=== PATIENT | male | born 2000 | race Caucasian/White ===

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

== ENCOUNTER 2019-02-14 14:20 | Emergency (ER) | payer OTHER ==
[~2019-02-14] VITALS: Ht 170.2 cm; Wt 61.7 kg
[2019-02-14 14:22] VITALS: BP 142/63; PULSE 61; RESP 19; Ht 170.2 cm; Wt 61.7 kg
--- NOTE | 2019-02-14 15:09 | ERD ---
ER Documentation Chief Complaint Chief Complaint abdominal pain, vomitting, nausea x 3 days; painful swallowing HPI 18-year-old male is here complaining of chest wall pain and throat pain from cough and congestion for the past 2 to 3 days. Triage note stated abdominal pain with nausea and vomiting however this is incorrect. He says the pain is swallowing but is tolerating oral intake. No fever. He also states he feels very anxious. ROS All systems reviewed and are negative except as per history of present illness. Medications Home Meds Active Scripts Lorazepam* (Ativan*) 0.5 Mg Tablet, 0.5 MG PO Q8, #5 TAB Prov:JACOB SANCHEZ PA-C 07/05/18 Ondansetron (Ondansetron Odt) 4 Mg Tab.rapdis, 4 MG PO Q6H PRN for NAUSEA AND/OR VOMITING, #10 TAB Prov:BRANDYN,KEVEN 01/26/18 Lorazepam* (Ativan*) 0.5 Mg Tablet, 0.5 MG PO Q8, #10 TAB Prov:BRANDYN,KEVEN 01/26/18 Reported Medications [None] No Conflict Check 05/17/12 Allergies Allergies: Coded Allergies: No Known Drug Allergies (Verified Allergy, Mild, 09/20/18) PMhx/Soc History of Surgery: Yes (left wrist SX) Anesthesia Reaction: No Hx Neurological Disorder: No Hx Respiratory Disorders: No Hx Cardiac Disorders: No Hx Psychiatric Problems: Yes (anxiety) Hx Miscellaneous Medical Probl: No Hx Alcohol Use: No Hx Substance Use: Yes (marijuana) Hx Tobacco Use: No FmHx Family History: No diabetes Physical Exam Vitals Vital Signs Date Temp Pulse Resp B/P (MAP) Pulse Ox O2 O2 Flow FiO2 Time Delivery Rate 02/14/19 97.6 61 19 142/63 97 14:22 (89) Physical Exam INITIAL VITAL SIGNS: Reviewed by me GENERAL: Awake, alert and oriented x 4, well appearing, nontoxic, speaking in full sentences. No acute distress HEAD: Atraumatic NECK: Supple. No masses. Full range of motion. No meningismus. No midline tenderness. EYES: EOMI. PERRL. THROAT: No tonilar erythema or edema. No exudates. Uvula midline. No kissing tonsils. RESPIRATORY: Clear to auscultation bilaterally. Symmetric chest wall rise. No wheezing or rales. No accessory muscle use. CV: Regular rate and rhythm. No murmurs, rubs, or gallops. ABDOMEN: Soft, non-distended. Nontender. Negative [place]. Negative McBurneys point tenderness. No CVA tenderness bilaterally. No guarding. No rebound. Results 24 hrs Current Medications Medications Dose Sig/Kostas Start Time Status Last (Trade) Ordered Route PRN Stop Time Admin Dose Reason Admin Lorazepam 1 mg ONCE ONCE 02/14/19 (Ativan) PO 15:30 02/14/19 15:31 Procedures/MDM Patient has URI symptoms as well as anxiety. Likely viral illness. No indication for antibiotics. Was given Ativan and prescription for small amount. Patient counseled regarding my diagnostic impression and care plan. Prior to discharge all questions answered. Pt agrees with treatment plan and understands strict return precautions. Pt is instructed to follow up with primary care provider within 24-48 hours. Precautionary instructions provided including instructions to return to the ER if not improving or for any worsening or changing symptoms or concerns. Departure Diagnosis: Primary Impression: Anxiety Additional Impression: URI (upper respiratory infection) Condition: Stable TOBIAS MUIR PA-C Feb 14, 2019 15:09
[2019-02-14] MEDS ORDERED: LORA1TAB PO (15:13)
[2019-02-14] MEDS ORDERED: LORAZEPAM 1 MG TAB PO ONE (15:30)
== END 2019-02-14 15:35 | disposition home or self-care (01) ==
LOC: FTE 14:20
DX: J06.9 Acute upper respiratory infection, unspecified (principal); F41.9 Anxiety disorder, unspecified
CPT/HCPCS: Z7502; Z7610; 99283

== ENCOUNTER 2019-03-30 23:50 | Emergency (ER) | payer OTHER ==
[~2019-03-30] VITALS: Ht 170.2 cm; Wt 62.0 kg
[~2019-03-30 23:50] MED LIST changes: +LORA1TAB PO
[2019-03-31 00:09] VITALS: BP 119/59; PULSE 59; RESP 18; Ht 170.2 cm; Wt 62.0 kg
[2019-03-31] MEDS ORDERED: CLOT30CR24 TOP (00:27)
--- NOTE | 2019-03-31 00:29 | ERD ---
ER Documentation Chief Complaint Chief Complaint itchy bump over his penile skin just now HPI 18-year-old male presents with small itchy red bumps on his penis that he first noticed about 4 hours ago. No pain only itchiness. He does admit to recent unprotected sex. No penile discharge. No fever. No dysuria hematuria or frequency. ROS All systems reviewed and are negative except as per history of present illness. Medications Home Meds Active Scripts Clotrimazole* (Clotrimazole* AF) 1% - 30 Gm Cream.gm., 1 APPLIC TOP BID for 7 Days, TUB Prov:TOBIAS MUIR PA-C 03/31/19 Lorazepam* (Lorazepam*) 1 Mg Tablet, 1 MG PO Q8, #10 TAB Prov:TOBIAS MUIR PA-C 02/14/19 Lorazepam* (Ativan*) 0.5 Mg Tablet, 0.5 MG PO Q8, #5 TAB Prov:JACOB SANCHEZ PA-C 07/05/18 Ondansetron (Ondansetron Odt) 4 Mg Tab.rapdis, 4 MG PO Q6H PRN for NAUSEA AND/OR VOMITING, #10 TAB Prov:BRANDYN,KEVEN 01/26/18 Lorazepam* (Ativan*) 0.5 Mg Tablet, 0.5 MG PO Q8, #10 TAB Prov:BRANDYN,KEVEN 01/26/18 Reported Medications [None] No Conflict Check 05/17/12 Allergies Allergies: Coded Allergies: No Known Drug Allergies (Verified Allergy, Mild, 09/20/18) PMhx/Soc History of Surgery: Yes (left wrist SX) Anesthesia Reaction: No Hx Neurological Disorder: No Hx Respiratory Disorders: No Hx Cardiac Disorders: No Hx Psychiatric Problems: Yes (anxiety) Hx Miscellaneous Medical Probl: No Hx Alcohol Use: No Hx Substance Use: Yes (marijuana) Hx Tobacco Use: No Smoking Status: Never smoker FmHx Family History: No diabetes Physical Exam Vitals Vital Signs Date Temp Pulse Resp B/P (MAP) Pulse Ox O2 O2 Flow FiO2 Time Delivery Rate 03/31/19 98.4 59 18 119/59 97 00:09 (79) Physical Exam Const: No acute distress Head: Atraumatic Eyes: Normal Conjunctiva ENT: Normal External Ears, Nose and Mouth. Neck: Full range of motion. No meningismus. Resp: Clear to auscultation bilaterally Cardio: Regular rate and rhythm, no murmurs Abd: Soft, non tender, non distended. : Uncircumcised penis on the glans of the penis he has multiple small red bumps Procedures/MDM Patient counseled regarding my diagnostic impression and care plan. Prior to discharge all questions answered. Pt agrees with treatment plan and understands strict return precautions. Pt is instructed to follow up with primary care provider within 24-48 hours. Precautionary instructions provided including instructions to return to the ER if not improving or for any worsening or changing symptoms or concerns. Patient counseled regarding my diagnostic impression and care plan. Prior to discharge all questions answered. Pt agrees with treatment plan and understands strict return precautions. Pt is instructed to follow up with primary care provider within 24-48 hours. Precautionary instructions provided including instructions to return to the ER if not improving or for any worsening or changing symptoms or concerns. Departure Diagnosis: Primary Impression: Rash Condition: Stable Patient Instructions: Bridgette Additional Instructions: Call your primary care doctor TOMORROW for an appointment during the next 1-2 days.See the doctor sooner or return here if your condition worsens before your appointment time. TOBIAS MUIR PA-C Mar 31, 2019 00:29
== END 2019-03-31 00:35 | disposition home or self-care (01) ==
LOC: FTE 23:50
DX: R21 Rash and other nonspecific skin eruption (principal)
CPT/HCPCS: 99283